=== PATIENT | female | born 1945 | race Caucasian/White ===

== ENCOUNTER → 2016-12-06 | Outpatient (CLI) | payer MEDICARE, OTHER ==
[~2016-12-06] MED LIST: ASPI81TA83; EVISTA; GLUC500T; HYDR25TA6; JANUVIA; MOBIC; SYNT50TA; VERA240T11; VICO5TAB; ZOCO40TA
--- NOTE | 2016-12-06 12:45 | REPMRS ---
Patient History The patient states she has not had a clinical breast exam in over a year. Patient is postmenopausal, has history of other cancer at age 66, and is nulliparous. Family history of colorectal cancer in father at age 50 or over and breast cancer in maternal cousin at age 65. Taking unspecified hormones for 12 years. Digital Woman Screen Mammo: December 06, 2016 - Exam #: [id number] Bilateral CC and MLO view(s) were taken. Technologist: Hannah Bush, Technologist Prior study comparison: December 04, 2015, digital woman screen mammo performed at [facility]. November 10, 2014, digital woman screen mammo performed at [facility]. FINDINGS: The breast tissue is heterogeneously dense. This may lower the sensitivity of mammography. There has been no change in the appearance of the mammogram from the prior studies. There is a moderate amount of residual fibroglandular tissue which is fairly symmetric. There is no interval development of dominant mass, areas of architectural distortion, or clustered microcalcification typical of malignancy. ASSESSMENT: BI-RADS/ACR category 1 mammogram. Negative. Recommendation Routine screening mammogram in 1 year (for women over age 40). This mammogram was interpreted with the aid of an FDA-approved computer-aided dectection system. Electronically Signed By: Brandon Powers MD 12/06/16 [id number]
--- NOTE | 2016-12-10 09:15 | DEXA ---
AP SPINE L1 - L4 1.358 1.3 1.9 LT FEMUR TOTAL 1.012 0.0 0.8 RT FEMUR TOTAL 0.901 -0.8 0.0 TOTAL BODY TOTAL OTHER DUAL FEMUR FRAX* ASSESSMENT Risk factors: History of adult fracture. 10 year probability of fracture Major osteoporotic fracture 14.0 % Hip fracture 1.7 % COMMENTS: Normal bone densitometry of the spine. Normal bone densitometry of the left hip. There is low bone density of the right hip. The increased density of the spine does represent a significant change. The decreased density of the left hip does not represent a significant change. The decreased density of the right hip does represent a significant change. The density of the spine has increased 15.8% since the initial exam on 01/2004. The spine density has increased 3.3% since the most recent exam on 11/2014. The density of the left hip has decreased 7.5% since the initial exam on 01/2004. The density of the left hip has decreased 1.8% since the most recent exam on 2014. The density of the right hip has decreased 10.7% since the initial exam on 2003. The density of the right hip has decreased 2.7% since the most recent exam on 2014. FOLLOW-UP: Recommendation for the next bone density exam: 2 years. TAMELA
== END ==
LOC: M WHC 10:50
PROVIDERS: ATTEND Internal Medicine
DX: Z12.31 Encounter for screening mammogram for malignant neoplasm of breast (principal); M85.80 Other specified disorders of bone density and structure, unspecified site; Z78.0 Asymptomatic menopausal state
CPT/HCPCS: 77080; G0202

== ENCOUNTER → 2022-03-26 | Outpatient (CLI) | payer MEDICARE, OTHER | LOC: M WHC 07:58 | PROVIDERS: ATTEND Internal Medicine | DX: Z12.31 Encounter for screening mammogram for malignant neoplasm of breast (principal) ==

== ENCOUNTER → 2024-03-30 | Outpatient (CLI) | payer MEDICARE, OTHER | LOC: M WHC 13:43 | PROVIDERS: ATTEND Internal Medicine | DX: Z12.31 Encounter for screening mammogram for malignant neoplasm of breast (principal); R92.323 Mammographic fibroglandular density, bilateral breasts ==

== ENCOUNTER → 2025-04-25 | Outpatient (CLI) | payer MEDICARE, OTHER | LOC: M WHC 10:27 | PROVIDERS: ATTEND Internal Medicine | DX: Z12.31 Encounter for screening mammogram for malignant neoplasm of breast (principal) ==